=== PATIENT | female | born 1960 | race Hispanic/Latino ===

== ENCOUNTER 2021-05-02 14:00 | Emergency (ER) | payer BC ==
[~2021-05-02] VITALS: Ht 167.6 cm; Wt 114.3 kg
[2021-05-02 14:10] VITALS: BP 146/71
[2021-05-02 14:42] VITALS: BP 133/73
[2021-05-02 17:01] VITALS: BP 128/74
== END 2021-05-02 17:02 | disposition home or self-care (01) ==
LOC: EDH 14:00
DX: S13.9XXA Sprain of joints and ligaments of unspecified parts of neck, initial encounter (principal); S00.03XA Contusion of scalp, initial encounter; E11.9 Type 2 diabetes mellitus without complications; E78.00 Pure hypercholesterolemia, unspecified; I10 Essential (primary) hypertension; V49.09XA Driver injured in collision with other motor vehicles in nontraffic accident, initial encounter; Y93.89 Activity, other specified; Y92.89 Other specified places as the place of occurrence of the external cause; Y99.8 Other external cause status
CPT/HCPCS: 70450; 72125